=== PATIENT | male | born 1985 | race Caucasian/White ===

== ENCOUNTER 2021-01-15 13:15 | Emergency (ER) | payer BC ==
[2021-01-15] MEDS ORDERED: Fluorescein 1 MG Ophth Strip EYELF ONE (13:45)
[2021-01-15] MEDS ORDERED: Tetracaine HCl/PF 0.5% 4 ML Bottle EYELF ONE (13:45)
[2021-01-15] MEDS ORDERED: Ciprofloxacin 0.3% Ophth Soln 2.5 ML Bottle ONE (14:10)
--- NOTE | 2021-01-15 14:15 | EDM.PDOC ---
ED HPI GENERAL MEDICAL PROBLEM - General Chief Complaint: Eye Problems Stated Complaint: EYE LACERATION-GLOBE Time Seen by Provider: 01/15/21 13:45 Source of Information: Reports: Patient History Limitations: Reports: No Limitations - History of Present Illness INITIAL COMMENTS - FREE TEXT/NARRATIVE: patient presented to the ER due to injury to the left eye. Reports he was cutting a metal piece - when it flew in the air and hit his left eye. He had a blurry vision for few minutes - before it got back to normal. 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 Onset: Sudden Duration: Hour(s): (1) ED ROS GENERAL - Review of Systems Review Of Systems: See Below Constitutional: Reports: No Symptoms Respiratory: Reports: No Symptoms Cardiovascular: Reports: No Symptoms GI/Abdominal: Reports: No Symptoms Musculoskeletal: Reports: No Symptoms Neurological: Reports: No Symptoms ED EXAM GENERAL W FULL EYE - Physical Exam Exam: See Below Exam Limited By: No Limitations General Appearance: Alert, WD/WN, No Apparent Distress Eye Exam: Left Eye: Other (small lateral subconjunctival hemorhhage), Bilateral Eye: EOMI, PERRL Eyelids: Bilateral: Normal Appearance Conjunctiva & Sclera: Left: Subconjuctival Hemorrhage Cornea Exam: Left: Normal Appearance Extraocular Movements: Left: Intact Pupils: Normal Accommodation Pupillary Reaction: Left: Brisk Head: Atraumatic Neck: Normal Inspection Respiratory/Chest: No Respiratory Distress Cardiovascular: Normal Peripheral Pulses Neurological: Alert, Oriented, No Motor/Sensory Deficits Course - Vital Signs Last Recorded V/S: Last Vital Signs Temp 36.1 C 01/15/21 13:36 Pulse 81 01/15/21 13:36 Resp 16 01/15/21 13:36 BP 136/90 01/15/21 13:36 Pulse Ox 98 01/15/21 13:36 - Re-Assessments/Exams Free Text/Narrative Re-Assessment/Exam: eye was washed and cleaned examined under fluorescent light - no corneal abrasion but a small contusion/subconjunctival hemorrhage. patient denies any vision changes compared to prior the incidence denies any new blurriness of vision - reports he is back to normal state eye drops were prescribed Departure - Departure Time of Disposition: 14:15 Disposition: Home, Self-Care 01 Condition: Good Clinical Impression: Subconjunctival hemorrhage of left eye - Discharge Information *PRESCRIPTION DRUG MONITORING PROGRAM REVIEWED*: Not Applicable *COPY OF PRESCRIPTION DRUG MONITORING REPORT IN PATIENT DOC: Not Applicable Instructions: Subconjunctival Hemorrhage Forms: ED Department Discharge Additional Instructions: - use eye drops every 6-8 hrs for the next 4-5 days - follow up with your PCP in 3-7 days as needed for a check up - Tylenol for pain if needed - return to the ER if any concerns Sepsis Event Note (ED) - Evaluation Sepsis Screening Result: No Definite Risk - Focused Exam Vital Signs: Vital Signs Temp Pulse Resp BP Pulse Ox 01/15/21 13:36 36.1 C 81 16 136/90 98 - Problem List & Annotations (1) Subconjunctival hemorrhage of left eye SNOMED Code(s): 17883792 Code(s): H11.32 - CONJUNCTIVAL HEMORRHAGE, LEFT EYE Status: Acute Priority: Low - Problem List Review Problem List Initiated/Reviewed/Updated: Yes - Assessment/Plan Plan: - use eye drops every 6-8 hrs for the next 4-5 days - follow up with your PCP in 3-7 days as needed for a check up - tylenol for pain if needed - return to the ER if any concerns
== END 2021-01-15 14:15 | disposition home or self-care (01) ==
LOC: LB.ED 13:15
DX: H11.32 Conjunctival hemorrhage, left eye (principal)
CPT/HCPCS: 99283; A9270

== ENCOUNTER 2022-10-25 13:42 | Emergency (ER) | payer OTHER ==
[2022-10-25] MEDS ORDERED: Sodium Chloride 0.9% 1,000 ML IV ONE (13:44)
== END 2022-10-25 15:00 | disposition home or self-care (01) ==
LOC: LB.ED 13:42
DX: R55 Syncope and collapse (principal)
CPT/HCPCS: 96360; 99283-25; J7030